=== PATIENT | male | born 1975 | race Caucasian/White ===

== ENCOUNTER 2020-12-03 12:11 | Emergency (ER) | payer OTHER ==
[~2020-12-03] VITALS: Ht 185.4 cm; Wt 105.2 kg
[~2020-12-03 12:11] MED LIST: HYDR-1421
[2020-12-03] MEDS ORDERED: TETRACAINE HCL 0.5% OPTH(EYE) SOLN 4ML EACHEYE ONE (14:30)
[2020-12-03] MEDS ORDERED: FLUORESCEIN SOD OPTH TEST STRIP OP ONE (14:30)
[2020-12-03 14:55] VITALS: BP 136/90
== END 2020-12-03 14:59 | disposition home or self-care (01) ==
LOC: ER 12:11
DX: H10.9 Unspecified conjunctivitis (principal); Z79.899 Other long term (current) drug therapy